=== PATIENT | female | born 1990 | race Two or more races ===

== ENCOUNTER 2019-12-27 22:46 | Emergency (ER) | payer MEDICAID, OTHER ==
[~2019-12-27] VITALS: Ht 160 cm; Wt 90.7 kg
[2019-12-27 22:46] VITALS: BP 138/77
[~2019-12-27 22:46] MED LIST: CEPH-570 PO; HYDR-3974 PO; METR500T PO
--- NOTE | 2019-12-27 22:50 | NUR ---
PT CAME INTO THE ED C/O COUGH, CONGESTION X 1 WEEK N/V, GENERALIZED BODY PAIN X1 DAY TOOK COLD MEDICINE @ 1700 WITHOUT RELIEF. PT AAOX4, RR EVEN AND UNLABORED W/ NAD NOTED. PT CONNECTED TO THE MONITOR AND POX
--- NOTE | 2019-12-28 00:27 | NUR ---
Patient discharged to home in stable condition. Written and verbal after care instructions given. Patient verbalizes understanding of instruction.
== END 2019-12-28 00:29 | disposition home or self-care (01) ==
LOC: ER 22:46
DX: J20.9 Acute bronchitis, unspecified (principal); D64.9 Anemia, unspecified; Z90.49 Acquired absence of other specified parts of digestive tract; Z79.899 Other long term (current) drug therapy
CPT/HCPCS: 71045-TC

== ENCOUNTER 2020-04-24 18:02 | Emergency (ER) | payer SELFPAY ==
[~2020-04-24] VITALS: Ht 160 cm; Wt 95.3 kg
[2020-04-24 18:19] VITALS: BP 116/76
== END 2020-04-24 19:09 | disposition home or self-care (01) ==
LOC: ER 18:02
DX: S61.432A Puncture wound without foreign body of left hand, initial encounter (principal); D64.9 Anemia, unspecified; Z90.49 Acquired absence of other specified parts of digestive tract; Z98.890 Other specified postprocedural states; Z79.899 Other long term (current) drug therapy; W55.01XA Bitten by cat, initial encounter; Y93.89 Activity, other specified; Y92.89 Other specified places as the place of occurrence of the external cause; Y99.8 Other external cause status

== ENCOUNTER 2023-02-05 02:32 | Emergency (ER) | payer SELFPAY ==
[~2023-02-05] VITALS: Ht 160 cm; Wt 95.3 kg
--- NOTE | 2023-02-05 03:04 | NUR ---
BIBWIFE. WATTERY DIARRHEA W/ NAUSEA X 2DAYS & L CHEST PAIN 9/10 ACHING RADIATING TO L ARM & BACK OF HEAD. AXO4.
[2023-02-05] MEDS ORDERED: MAG HYDROX/AL HYDROX/SIMETH 30 ML UDC ONE (03:19)
[2023-02-05] MEDS ORDERED: ONDANSETRON 4 MG TAB.RAPDIS ONE (03:20)
[2023-02-05] MEDS ORDERED: LIDOCAINE VISCOUS 2% UD 15 ML UDC ONE (03:20)
[2023-02-05] MEDS ORDERED: ACETAMINOPHEN ES 500 MG TABLET ONE (03:20)
[2023-02-05] MEDS ORDERED: LIDOCAINE VISCOUS 2% UD 15 ML UDC MM ONE (03:30)
[2023-02-05] MEDS ORDERED: ACETAMINOPHEN ES 500 MG TABLET PO ONE (03:30)
[2023-02-05] MEDS ORDERED: ONDANSETRON 4 MG TAB.RAPDIS SL ONE (03:30)
[2023-02-05] MEDS ORDERED: MAG HYDROX/AL HYDROX/SIMETH 30 ML UDC PO ONE (03:30)
--- NOTE | 2023-02-05 04:20 | NUR ---
Patient discharged to home in stable condition. Written and verbal after care instructions given. Patient verbalizes understanding of instruction.
[2023-02-05 04:21] VITALS: BP 131/80
== END 2023-02-05 04:21 | disposition home or self-care (01) ==
LOC: ER 02:43
DX: B34.9 Viral infection, unspecified (principal); R11.2 Nausea with vomiting, unspecified; Z90.49 Acquired absence of other specified parts of digestive tract
CPT/HCPCS: 99284; 93005; Q0162

== ENCOUNTER 2024-03-21 13:11 | Emergency (ER) | payer MEDICAID ==
[~2024-03-21] VITALS: Ht 160 cm; Wt 90.7 kg
[2024-03-21 14:40] VITALS: BP 134/77; TEMP 98.8
[2024-03-21] MEDS ORDERED: TYL2T PO (15:03)
[2024-03-21] MEDS ORDERED: CETI1TAB9 PO (15:03)
[2024-03-21] MEDS ORDERED: ACETAMINOPHEN 325 MG TABLET ONE (15:22)
[2024-03-21] MEDS ORDERED: cetrizine 10 MG TABLET ONE (15:22)
[2024-03-21] MEDS: cetrizine 10 MG TABLET PO ONE (15:30)
[2024-03-21] MEDS: ACETAMINOPHEN 325 MG TABLET PO ONE (15:30)
[2024-03-21 17:35] VITALS: O2SAT 100
== END 2024-03-21 17:37 | disposition home or self-care (01) ==
LOC: ER 13:31
DX: B34.9 Viral infection, unspecified (principal); Z90.49 Acquired absence of other specified parts of digestive tract; Z20.822 Contact with and (suspected) exposure to COVID-19

== ENCOUNTER 2024-03-28 15:16 | Emergency (ER) | payer MEDICAID ==
[~2024-03-28] VITALS: Ht 160 cm; Wt 90.7 kg
[~2024-03-28 15:16] MED LIST changes: +CETI1TAB9 PO; +TYL2T PO
[2024-03-28 15:44] VITALS: BP 166/83; TEMP 99.5; O2SAT 97
[2024-03-28] MEDS ORDERED: IBUP-1955 PO (16:26)
[2024-03-28] MEDS ORDERED: PENI500T PO (16:26)
== END 2024-03-28 16:56 | disposition home or self-care (01) ==
LOC: ER 15:18
DX: J02.9 Acute pharyngitis, unspecified (principal); D64.9 Anemia, unspecified; Z79.899 Other long term (current) drug therapy; Z90.49 Acquired absence of other specified parts of digestive tract
CPT/HCPCS: 86403-TC; 87070-TC

== ENCOUNTER 2025-01-02 13:12 | Emergency (ER) | payer SELFPAY ==
[~2025-01-02] VITALS: Ht 160 cm; Wt 95.3 kg
[~2025-01-02 13:12] MED LIST changes: +IBUP-1955 PO; +PENI500T PO
[2025-01-02] MEDS ORDERED: ACETAMINOPHEN ES 500 MG TABLET ONE (14:08)
[2025-01-02] MEDS ORDERED: KETOROLAC TROMETHAMINE 15 MG/ML VIAL ONE (14:08)
[2025-01-02] MEDS: IV NS 0.9% 1,000 ML IV ONE (14:12)
[2025-01-02] MEDS: ACETAMINOPHEN ES 500 MG TABLET PO ONE (14:13)
[2025-01-02] MEDS: KETOROLAC TROMETHAMINE 15 MG/ML VIAL IV ONE (14:13)
[2025-01-02] MEDS ORDERED: BENZ-13 PO (15:08)
[2025-01-02] MEDS ORDERED: PSEU120T99 PO (15:08)
[2025-01-02 15:30] VITALS: BP 134/79; TEMP 98.3; O2SAT 97
== END 2025-01-02 15:30 | disposition home or self-care (01) ==
LOC: ER 13:21
DX: J06.9 Acute upper respiratory infection, unspecified (principal); F17.200 Nicotine dependence, unspecified, uncomplicated; Z90.49 Acquired absence of other specified parts of digestive tract; Z20.822 Contact with and (suspected) exposure to COVID-19
CPT/HCPCS: 99284; 96374; 71045; 96361; 87426; 87804 ×2; J1885; J7030